=== PATIENT | female | born 1955 | race Caucasian/White ===

== ENCOUNTER 2019-08-22 13:28 | Inpatient (IN) | payer MEDICARE ==
[~2019-08-22] VITALS: Ht 162.6 cm; Wt 66.3 kg
--- OUTSIDE RECORDS SUMMARY | 2019-08-22 13:31 | XMS REPORT ---
[facility] Address Unknown Phone Unavailable Care Team Providers Care Rheostat Assembler Name Role Phone Unavailable Unavailable Problems This patient has no known problems. Allergies, Adverse Reactions, Alerts This patient has no known allergies or adverse reactions. Medications This patient has no known medications. Encounters Start Date/Time End Date/Time Encounter Type Admission Type Attending [facility] Facility Care Department Encounter ID 2017-05-19 07:30:13 Inpatient [facility] [id number] 2017-05-13 14:19:15 Inpatient [facility] [id number] 2017-04-23 00:03:17 Inpatient [facility] [id number] 2017-04-22 07:29:15 Inpatient [facility] [id number] 2017-04-22 00:15:28 Inpatient [facility] [id number] 2017-04-21 00:10:14 Inpatient [facility] [id number] 2017-04-19 00:04:04 Inpatient [facility] [id number] 2017-04-18 00:09:48 Inpatient [facility] [id number] 2017-04-16 00:00:00 Inpatient [facility] [id number] 2017-04-15 16:29:18 Inpatient [facility] [id number] 2017-04-14 00:00:00 Inpatient [facility] [id number] 2018-09-06 00:00:00 2018-09-06 00:00:00 Outpatient [facility] [id number] 2018-08-12 00:00:00 2018-08-12 00:00:00 Outpatient [facility] [id number] 2018-07-12 15:09:13 2018-07-12 15:09:13 Outpatient [facility] [id number] 2018-07-12 13:30:24 2018-07-12 13:30:24 Outpatient [facility] [id number] 2018-06-20 07:47:30 2018-06-20 07:47:30 Outpatient [facility] [id number] 2018-06-07 12:56:59 2018-06-07 12:56:59 Outpatient [facility] [id number] 2018-05-26 15:04:50 2018-05-26 15:04:50 Outpatient [facility] [id number] 2018-05-19 10:33:15 2018-05-19 10:33:15 Outpatient [facility] [id number] 2018-05-19 10:16:11 2018-05-19 10:16:11 Outpatient [facility] [id number] 2018-05-17 08:52:04 2018-05-17 08:52:04 Outpatient [facility] [id number] 2018-05-17 00:00:00 2018-05-17 00:00:00 Outpatient [facility] [id number] 2018-05-16 00:00:00 2018-05-16 00:00:00 Outpatient [facility] [id number] 2018-05-06 08:52:04 2018-05-06 08:52:04 Outpatient [facility] [id number] 2018-05-06 07:54:04 2018-05-06 07:54:04 Outpatient [facility] [id number] 2018-04-27 07:57:01 2018-04-27 07:57:01 Outpatient [facility] [id number] 2018-04-25 08:43:12 2018-04-25 08:43:12 Outpatient [facility] [id number] 2018-03-17 00:00:00 2018-03-17 00:00:00 Outpatient [facility] [id number] 2018-03-15 08:03:44 2018-03-15 08:03:44 Outpatient [facility] [id number] 2018-03-04 10:08:59 2018-03-04 10:08:59 Outpatient [facility] [id number] 2018-03-04 08:11:30 2018-03-04 08:11:30 Outpatient [facility] [id number] 2018-03-04 00:00:00 2018-03-04 00:00:00 Outpatient [facility] [id number] 2018-02-23 14:41:44 2018-02-23 14:41:44 Outpatient [facility] [id number] 2018-02-02 13:15:13 2018-02-02 13:15:13 Outpatient [facility] [id number] 2018-02-02 11:46:19 2018-02-02 11:46:19 Outpatient [facility] [id number] 2018-01-12 00:00:00 2018-01-12 00:00:00 Outpatient [facility] [id number] 2018-01-12 00:00:00 2018-01-12 00:00:00 Outpatient [facility] [id number] 2017-11-30 00:00:00 2017-11-30 00:00:00 Outpatient [facility] [id number] 2017-11-04 13:09:18 2017-11-04 13:09:18 Outpatient [facility] [id number] 2017-11-02 00:00:00 2017-11-02 00:00:00 Outpatient [facility] [id number] 2017-10-11 12:52:14 2017-10-11 12:52:14 Outpatient [facility] [id number] 2017-10-06 10:09:10 2017-10-06 10:09:10 Outpatient [facility] [id number] 2017-10-04 13:29:39 2017-10-04 13:29:39 Outpatient [facility] [id number] 2017-10-01 09:39:34 2017-10-01 09:39:34 Outpatient [facility] [id number] 2017-09-15 13:05:56 2017-09-15 13:05:56 Outpatient [facility] [id number] 2017-09-15 12:00:10 2017-09-15 12:00:10 Outpatient [facility] [id number] 2017-09-13 13:00:54 2017-09-13 13:00:54 Outpatient [facility] [id number] 2017-09-10 00:00:00 2017-09-10 00:00:00 Outpatient [facility] [id number] 2017-09-09 12:35:00 2017-09-09 12:35:00 Outpatient [facility] [id number] 2017-09-09 00:00:00 2017-09-09 00:00:00 Outpatient [facility] [id number] 2017-09-08 10:17:09 2017-09-08 10:17:09 Outpatient [facility] [id number] 2017-09-08 00:00:00 2017-09-08 00:00:00 Outpatient [facility] [id number] 2017-09-07 00:00:00 2017-09-07 00:00:00 Outpatient [facility] [id number] 2017-09-03 12:07:18 2017-09-03 12:07:18 Outpatient [facility] [id number] 2017-08-30 13:29:34 2017-08-30 13:29:34 Outpatient [facility] [id number] 2017-08-30 12:32:43 2017-08-30 12:32:43 Outpatient [facility] [id number] 2017-08-27 08:05:34 2017-08-27 08:05:34 Outpatient [facility] [id number] 2017-08-19 08:42:45 2017-08-19 08:42:45 Outpatient [facility] [id number] 2017-08-03 15:08:38 2017-08-03 15:08:38 Outpatient [facility] [id number] 2017-08-03 13:40:51 2017-08-03 13:40:51 Outpatient [facility] [id number] 2017-07-26 12:43:21 2017-07-26 12:43:21 Outpatient [facility] [id number] 2017-07-26 00:00:00 2017-07-26 00:00:00 Outpatient [facility] [id number] 2017-07-22 00:00:00 2017-07-22 00:00:00 Outpatient [facility] [id number] 2017-07-21 13:14:39 2017-07-21 13:14:39 Outpatient [facility] [id number] 2017-07-21 00:00:00 2017-07-21 00:00:00 Outpatient [facility] [id number] 2017-07-15 09:11:59 2017-07-15 09:11:59 Outpatient [facility] [id number] 2017-07-15 00:00:00 2017-07-15 00:00:00 Outpatient [facility] [id number] 2017-07-12 14:03:26 2017-07-12 14:03:26 Outpatient [facility] [id number] 2017-07-09 09:18:13 2017-07-09 09:18:13 Outpatient [facility] [id number] 2017-07-02 00:00:00 2017-07-02 00:00:00 Outpatient [facility] [id number] 2017-07-01 00:00:00 2017-07-01 00:00:00 Outpatient [facility] [id number] 2017-06-18 09:58:00 2017-06-18 09:58:00 Outpatient [facility] [id number] 2017-06-16 14:54:06 2017-06-16 14:54:06 Outpatient [facility] [id number] 2017-06-16 14:20:11 2017-06-16 14:20:11 Outpatient [facility] [id number] 2017-06-14 13:52:55 2017-06-14 13:52:55 Outpatient [facility] [id number] 2017-06-14 00:00:00 2017-06-14 00:00:00 Outpatient [facility] [id number] 2017-06-07 10:46:02 2017-06-07 10:46:02 Outpatient [facility] [id number] 2017-06-03 00:44:10 2017-06-03 00:44:10 Emergency [facility] [id number] 2017-06-02 23:55:06 2017-06-02 23:55:06 Emergency [facility] [id number] 2017-06-02 14:39:46 2017-06-02 14:39:46 Outpatient [facility] [id number] 2017-06-01 09:03:28 2017-06-01 09:03:28 Outpatient [facility] [id number] 2017-06-01 00:00:00 2017-06-01 00:00:00 Outpatient [facility] [id number] 2017-05-28 15:05:05 2017-05-28 00:00:00 Inpatient [facility] [id number] 2017-05-28 00:00:00 2017-05-28 00:00:00 Outpatient [facility] [id number] 2017-05-27 00:00:00 2017-05-27 00:00:00 Outpatient [facility] [id number] 2017-05-27 00:00:00 2017-05-27 00:00:00 Outpatient [facility] [id number] 2017-05-26 11:20:06 2017-05-26 00:00:00 Inpatient [facility] [id number] 2017-05-26 00:00:00 2017-05-26 00:00:00 Outpatient [facility] [id number] 2017-05-25 15:35:06 2017-05-25 00:00:00 Inpatient [facility] [id number] 2017-05-25 15:13:46 2017-05-25 00:00:00 Inpatient [facility] [id number] 2017-05-25 15:13:45 2017-05-25 00:00:00 Inpatient [facility] [id number] 2017-05-25 12:47:03 2017-05-25 00:00:00 Inpatient [facility] [id number] 2017-05-25 00:00:00 2017-05-25 00:00:00 Outpatient [facility] [id number] 2017-05-24 07:22:26 2017-05-24 07:22:26 Emergency [facility] [id number] 2017-05-24 05:44:20 2017-05-24 05:44:20 Inpatient [facility] [id number] 2017-05-24 00:00:00 2017-05-24 00:00:00 Outpatient [facility] [id number] 2017-05-24 00:00:00 2017-05-24 00:00:00 Outpatient [facility] [id number] 2017-05-24 00:00:00 2017-05-24 00:00:00 Outpatient [facility] [id number] 2017-05-24 00:00:00 2017-05-24 00:00:00 Outpatient [facility] [id number] 2017-05-19 00:00:00 2017-05-19 00:00:00 Outpatient [facility] [id number] 2017-05-19 00:00:00 2017-05-19 00:00:00 Outpatient [facility] [id number] 2017-05-19 00:00:00 2017-05-19 00:00:00 Outpatient [facility] [id number] 2017-05-17 17:57:30 2017-05-17 17:57:30 Inpatient [facility] [id number] 2017-05-14 00:00:00 2017-05-14 00:00:00 Outpatient [facility] [id number] 2017-05-13 12:20:35 2017-05-13 00:00:00 Inpatient [facility] [id number] 2017-05-12 13:22:44 2017-05-12 13:22:44 Outpatient [facility] [id number] 2017-05-12 10:10:34 2017-05-12 10:10:34 Outpatient [facility] [id number] 2017-05-12 09:11:13 2017-05-12 09:11:13 Outpatient [facility] [id number] 2017-05-12 17:40:00 2017-05-12 00:00:00 Inpatient [facility] [id number] 2017-05-12 00:00:00 2017-05-12 00:00:00 Outpatient [facility] [id number] 2017-05-12 00:00:00 2017-05-12 00:00:00 Outpatient [facility] [id number] 2017-04-21 15:47:34 2017-04-21 00:00:00 Inpatient [facility] [id number] 2017-04-20 00:14:10 2017-04-20 00:00:00 Inpatient [facility] [id number] 2017-04-19 16:38:48 2017-04-19 00:00:00 Inpatient [facility] [id number] 2017-04-17 00:33:53 2017-04-17 00:00:00 Inpatient [facility] [id number] 2017-04-16 13:00:48 2017-04-16 00:00:00 Inpatient [facility] [id number] 2017-04-15 17:31:22 2017-04-15 00:00:00 Inpatient [facility] [id number] 2017-04-08 08:31:25 2017-04-08 08:31:25 Outpatient [facility] [id number] 2017-04-08 07:40:27 2017-04-08 07:40:27 Outpatient [facility] [id number] 2017-03-31 09:06:39 2017-03-31 09:06:39 Outpatient [facility] [id number] 2017-03-10 09:27:12 2017-03-10 09:27:12 Outpatient [facility] [id number] 2017-03-08 09:30:57 2017-03-08 09:30:57 Outpatient [facility] [id number] 2017-03-04 00:00:00 2017-03-04 00:00:00 Outpatient [facility] [id number]
--- OUTSIDE RECORDS SUMMARY | 2019-08-22 13:31 | XMS REPORT | Summary of Care ---
Author Author Justine Montague M.A. Unknown Address [facility] Phone Unavailable Care Team Providers Care Web Application Developer Name Role Phone FABIEN Krishnan, ERMA Unavailable Unavailable SIVAKUMAR Whyte, BARBARA Unavailable Unavailable MELIA Krishnan, SRIDHAR Unavailable Unavailable ELISABETH SULLIVAN, GABE Sin Unavailable Unavailable ELISABETH Whyte, GABE Unavailable Unavailable FABIEN SAUCEDO, ERMA Unavailable Unavailable SIVAKUMAR SULLIVAN, BARBARA Unavailable Unavailable MANUEL SULLIVAN, DANIS Unavailable Unavailable Gabby SULLIVAN, Floyd Unavailable Unavailable ALEX SULLIVAN DE, SEAN PONCE Unavailable Unavailable VIKKI SULLIVAN, VINCENT Poe Unavailable Unavailable Unavailable Unavailable Functional Status Name Dates Details Functional status health issues are not documented Status: Name Dates Details Cognitive status health issues are not documented Status: Problems Name Dates Details Hyperglycemia (790.29, R73.9) Status: Active Hypokalemia (276.8, E87.6) Status: Active Financial difficulties (V60.2, Z59.8) Status: Active Helicobacter pylori (H. pylori) infection (041.86, A04.8) Status: Active Fecal occult blood test positive (792.1, R19.5) Status: Active Entrapment syndrome (355.9, G58.9) Status: Active Nerve entrapment syndrome (355.9, G58.9) Status: Active History of claustrophobia (V11.8, Z86.59) Status: Active Rectal bleeding (569.3, K62.5) Status: Active Myofascial pain (729.1, M79.18) Status: Active Rectal bleeding (569.3, K62.5) Status: Active Diarrhea (787.91, R19.7) Status: Active Acid reflux (530.81, K21.9) Status: Active Chest pain (786.50, R07.9) Status: Active LBBB (left bundle branch block) (426.3, I44.7) Status: Active Influenza vaccine administered (V04.81, Z23) Status: Active Acute bronchitis, viral (466.0, J20.8) Status: Active Elevated LFTs (790.6, R94.5) Status: Active Breast cancer screening (V76.10, Z12.39) Status: Active Influenza A (487.1, J10.1) Status: Active Acute bacterial bronchitis (466.0, J20.8) Status: Active Flu-like symptoms (780.99, R68.89) Status: Active Atypical chest pain (786.59, R07.89) Status: Active Vertigo, peripheral (386.10, H81.399) Status: Active Allergic rhinitis, seasonal (477.9, J30.2) Status: Active Aortic valve replaced (V43.3, Z95.2) Status: Active Acid reflux disease (530.81, K21.9) Status: Active Hypothyroidism (244.9, E03.9) Status: Active Continuous LUQ abdominal pain (789.02, R10.12) Status: Active Left flank pain (789.09, R10.9) Status: Active Fever and chills (780.60, R50.9) Status: Active Controlled diabetes mellitus (250.00, E11.9) Status: Active UTI (urinary tract infection) (599.0, N39.0) Status: Active Hyperkalemia (276.7, E87.5) Status: Active On statin therapy (V58.69, Z79.899) Status: Active Abdominal pain (789.00, R10.9) Status: Active Diabetes mellitus type II, uncontrolled (250.02, E11.65) Status: Active Essential (primary) hypertension (401.9, I10) Status: Active Hyperlipidemia (272.4, E78.5) Status: Active Abdominal pain, acute, left upper quadrant (789.02, R10.12) Status: Active PAOD (peripheral arterial occlusive disease) (444.22, I77.9) Status: Active Medications Name Dates Details Atorvastatin Calcium 40 MG Oral Tablet TAKE 1 TABLET DAILY DIRECTED. Quantity: 90 BARBARA SHAVER M.D. * Start : 28-Mar-2019 Active Clopidogrel Bisulfate 75 MG Oral Tablet TAKE 1 TABLET DAILY. * Quantity: 90 Refills: 3 BARBARA SHAVER M.D. Active Fenofibrate 145 MG Oral Tablet TAKE 1 TABLET DAILY * Quantity: 90 Refills: 3 BARBARA SHAVER M.D. * Start : 08-Mar-2019 Active Levothyroxine Sodium 75 MCG Oral Tablet TAKE 1 TABLET DAILY. * Quantity: 90 Refills: 1 FABIEN Strong.ERMA Tyler * Start : 27-Jun-2019 Active Nitroglycerin 0.4 MG Sublingual Tablet Sublingual PLACE 1 TABLET UNDER THE TONGUE EVERY 5 MINUTES FOR UP TO 3 DOSES NEEDED FOR CHEST PAIN.CALL 911 IF PAIN PERSISTS. * Quantity: 1 Refills: 0 BARBARA SHAVER M.D. Active 25 Tablet Bottle Pantoprazole Sodium 40 MG Oral Tablet Delayed Release TAKE 1 TABLET DAILY * Quantity: 90 Refills: 3 BARBARA SHAVER M.D. Active metFORMIN HCl - 500 MG Oral Tablet TAKE 1 TABLET BY MOUTH EVERY MORNING * Quantity: 90 Refills: 1 FABIEN Strong.ERMA Tyler * Start : 07-Jan-2018 Active hydroCHLOROthiazide 25 MG Oral Tablet TAKE ONE TABLET BY MOUTH DAILY * Quantity: 90 Refills: Janice BARBARA SHAVER M.D. * Start : 17-Jan-2018 Active Losartan Potassium 50 MG Oral Tablet TAKE 1 TABLET DAILY. * Quantity: 90 Refills: 3 BARBARA SHAVER M.D. Active True Metrix Meter w/Device Kit USE DIRECTED DX:E11.9. * Quantity: 1 Refills: 0 FABIEN P.AMELANY BensonERMA * Start : 22-Dec-2018 Active True Metrix Blood Glucose Test In Vitro Strip TEST ONCE DAILY DIRECTED dx:E11.9 * Quantity: 100 Refills: 0 FABIEN P.A. ERMA * Start : 22-Dec-2018 Active Meclizine HCl - 12.5 MG Oral Tablet TAKE 1 TABLET 3 TIMES DAILY NEEDED FOR DIZZINESS * Quantity: 30 Refills: 0 SRIDHAR MARTINEZ * Start : 28-Feb-2019 Active Levocetirizine Dihydrochloride 5 MG Oral Tablet TAKE 1 TABLET DAILY. * Quantity: 90 Refills: 1 FABIEN Strong.A.MELANYERMA * Start : 10-Apr-2019 Active Sulfamethoxazole-Trimethoprim 800-160 MG Oral Tablet TAKE 1 TABLET TWICE DAILY UNTIL FINISHED. * Quantity: 20 Refills: 0 FABIEN P.A., ERMA * Start : 25-May-2019 Active Allergies and Adverse Reactions Name Dates Details Aspirin TABS (Allergy) Status: Active codeine (Allergy) Status: Active Heparins (Allergy) Status: Active Lovenox (Allergy) Status: Active Lyrica CAPS (Allergy) Reaction: Abdominal pain Status: Active morphine (Allergy) Status: Active Paxil TABS (Allergy) Status: Active Penicillins (Allergy) Status: Active Tdap (Allergy) Status: Active Tetanus-Diphtheria Toxoids Td SUSP (Allergy) Status: Active Tetracyclines (Allergy) Status: Active warfarin (Allergy) Status: Active Zoloft TABS (Allergy) Status: Active Past Medical History Name Dates Details History of depression (V11.8, Z86.59) Status: Resolved 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, Z86.2) Status: Resolved History of high cholesterol (V12.29, Z86.39) Status: Resolved History of hypertension (V12.59, Z86.79) Status: Resolved History of hyperthyroidism (V12.29, Z86.39) Status: Resolved Procedures Procedure Dates Details [QH] LIPID PANEL WITH REFLEX TO DIRECT LDL Date: 22-Jun-2019 [QLH] HEPATIC FUNCTION PANEL Date: 22-Jun-2019 CT Abdomen/Pelvis w/wo contrast [id number] Date: 25-May-2019 History of Gallbladder surgery Completed History of Hysterectomy Completed History of Aortic valve replacement Completed History of Leg surgery Completed Immunization Name Dates Details Fluzone High-Dose 0.5 ML Intramuscular Suspension Prefilled Syringe Lot #: [id number] on: 27-Dec-2018 Family History Name Dates Details Family history of Aortic valve replaced (V43.3, Z95.2) Status: Active Name Dates Details Family history of diabetes mellitus (V18.0, Z83.3) Status: Active Name Dates Details Family history of diabetes mellitus (V18.0, Z83.3) Status: Active Name Dates Details Family history of diabetes mellitus (V18.0, Z83.3) Status: Active Social History Name Dates Details - Status: Name Dates Details Smoker. current status unknown Vital Signs Date Test Result Details [id number] BP Systolic 125 mm[Hg] Status: Comments: Location: E; Position: Sitting BP Diastolic 76 mm[Hg] Status: Comments: [place] [facility] [place] Height 64 in Status: Weight 138.25 lb Status: Body Mass Index Calculated 23.73 kg/m2 Status: Body Surface Area Calculated 1.67 m2 Status: Heart Rate 81 /min Status: Respiration Rate 16 /min Status: Results Date Description Value Details [id number] [FORM[facility]LY [facility]] CMP W/EGFR Comments: REPORT COMMENT:FASTING:NO GLUCOSE 107 mg/dl (Normal) Range: 65-139 Comments: Non-fasting reference interval UREA NITROGEN (BUN) 21 mg/dl (Normal) Range: 7-25 CREATININE 0.78 mg/dl (Normal) Range: 0.50-0.99 Comments: For patients >49 years of age, the reference limitfor Creatinine is approximately 13% higher for peopleidentified as -[place]. eGFR NON- 80 {ML/MIN/1.7} (Normal) Range: > OR=60 eGFR 92 {ML/MIN/1.7} (Normal) Range: > OR=60 BUN/CREATININE RATIO NOT APPLICABLE {CALC} Range: 6-22 SODIUM 136 mmol/L (Normal) Range: 135-146 POTASSIUM 3.9 mmol/L (Normal) Range: 3.5-5.3 CHLORIDE 100 mmol/L (Normal) Range: 98-110 CARBON DIOXIDE 29 mmol/L (Normal) Range: 20-32 CALCIUM 9.7 mg/dl (Normal) Range: 8.6-10.4 PROTEIN, TOTAL 7.2 g/dl (Normal) Range: 6.1-8.1 ALBUMIN 4.4 g/dl (Normal) Range: 3.6-5.1 GLOBULIN 2.8 {G/DL__CALC} (Normal) Range: 1.9-3.7 ALBUMIN/GLOBULIN RATIO 1.6 {CALC} (Normal) Range: 1.0-2.5 BILIRUBIN, TOTAL 0.5 mg/dl (Normal) Range: 0.2-1.2 ALKALINE PHSPHATASE 77 u/l (Normal) Range: 33-130 AST 19 u/l (Normal) Range: 10-35 ALT 15 u/l (Normal) Range: 6-29 Plan of Care Name Dates Details Planned Observations Planned Goals not documented Planned Encounters Appointment; ERMA CONN P.A. On: 10-Oct-2019 8:00 Appointment; BARBARA SHAVER M.D. On: 26-Oct-2019 10:00 Interventions Provided Medication Changes* Levocetirizine Dihydrochloride 5 MG Oral Tablet - Renew Instructions Name Dates Details Instructions not documented Encounters Appointment; ERMA CONN P.A. Encounter Diagnosis: Problem not documented On: 23-Dec-2017 9:45 Appointment; BARBARA SHAVER M.D. Encounter Diagnosis: Problem not documented On: 06-Jan-2018 14:20 Appointment; ERMA CONN P.A. Encounter Diagnosis: Problem not documented On: 07-Jan-2018 9:15 Appointment; FLOYD RANGEL M.D. Encounter Diagnosis: Problem not documented On: 10-Jan-2018 15:00 Appointment; [place], ECHO Encounter Diagnosis: Problem not documented On: 14-Jan-2018 13:00 Appointment; [place], ECHO Encounter Diagnosis: Problem not documented On: 14-Jan-2018 14:00 Appointment; [place], ECHO Encounter Diagnosis: Problem not documented On: 14-Jan-2018 15:00 Appointment; BARBARA SHAVER M.D. Encounter Diagnosis: Problem not documented On: 17-Jan-2018 10:20 Appointment; DANIS JACKSON M.D. Encounter Diagnosis: Problem not documented On: 19-Jan-2018 8:45 Appointment; ILIR PALOMINO D.O. Encounter Diagnosis: Problem not documented On: 19-Jul-2018 11:00 Appointment; FLOYD RANGEL M.D. Encounter Diagnosis: Problem not documented On: 26-Jul-2018 16:30 Appointment; FLOYD RANGEL M.D. Encounter Diagnosis: Problem not documented On: 05-Aug-2018 15:00 Appointment; DANIS JACKSON M.D. Encounter Diagnosis: Problem not documented On: 29-Aug-2018 8:00 Appointment; FLOYD RANGEL M.D. Encounter Diagnosis: Problem not documented On: 01-Sep-2018 15:30 Appointment; [facility] CON[facility] P.A. Encounter Diagnosis: Problem not documented On: 07-Sep-2018 9:45 Appointment; FLOYD RANGEL M.D. Encounter Diagnosis: Problem not documented On: 18-Oct-2018 13:00 Appointment; FLOYD RANGEL M.D. Encounter Diagnosis: Problem not documented On: 21-Nov-2018 9:30 Appointment; BABRARA SHAVER M.D. Encounter Diagnosis: Problem not documented On: 08-Dec-2018 11:40 Appointment; [facility], NUCLEAR Encounter Diagnosis: Problem not documented On: 27-Dec-2018 8:00 Appointment; BARBARA SHAVER M.D. Encounter Diagnosis: Problem not documented On: 27-Dec-2018 13:20 Appointment; [facility] CON[facility] P.A. Encounter Diagnosis: Problem not documented On: 05-Jan-2019 9:30 Appointment; [facility] CON[facility] P.A. Encounter Diagnosis: Problem not documented On: 23-Jan-2019 9:00 Appointment; SRIDHAR CÁRDENAS P.A. Encounter Diagnosis: Problem not documented On: 28-Feb-2019 15:45 Appointment; [facility] CONN P.A. Encounter Diagnosis: Problem not documented On: 10-Apr-2019 8:00 Appointment; BARBARA SHAVER M.D. Encounter Diagnosis: Problem not documented On: 11-May-2019 15:20 Appointment; [facility] CONN P.A. Encounter Diagnosis: Problem not documented On: 25-May-2019 10:15 Appointment; [place], ECHO Encounter Diagnosis: Problem not documented On: 19-Jun-2019 9:00 Appointment; BARBARA SHAVER M.D. Encounter Diagnosis: Problem not documented On: 22-Jun-2019 10:40 Appointment; OPHELIA NEVAREZ M.D. Encounter Diagnosis: Problem not documented On: 23-Jun-2019 9:30
[2019-08-22 14:07] LABS: BILIRUBIN,URINE NEGATIVE (NEGATIVE); CLARITY,URINE CLEAR (CLEAR); COLOR,URINE YELLOW (YELLOW); KETONES,URINE NEGATIVE (NEGATIVE); LEUKOCYTE ESTERASE ,URINE SMALL (NEGATIVE); NITRITE,URINE NEGATIVE (NEGATIVE); PROTEIN,URINE DIPSTICK NEGATIVE (NEGATIVE); URINE UROBILINOGEN 0.2 mg/dL (0.2 - 1)
[2019-08-22 14:12] LABS: BASOPHILS # (AUTO) 0.1 (0.0-0.1); BASOPHILS % 0.9 % (0.0-1.0); EOSINOPHILS # (AUTO) 0.1 (0.0-0.4); EOSINOPHILS % 1.7 % (0.0-6.0); HEMATOCRIT 38.5 % (34.2-44.1); HEMOGLOBIN 12.9 g/dL (12.0-16.0); LYMPHOCYTES # (AUTO) 1.2 (1.0-3.2); MEAN CORPUSCULAR HEMOGLOBIN 27.7 pg (28-32); MEAN CORPUSCULAR HGB CONC 33.5 g/dL (31-35); MEAN CORPUSCULAR VOLUME 82.8 fL (81-99); MONOCYTES # (AUTO) 0.5 (0.2-0.8); MONOCYTES % 8.9 % (4.4-11.3); NEUTROPHILS # (AUTO) 3.5 (2.1-6.9); NEUTROPHILS % 65.9 % (38.7-80.0); PLATELET COUNT 269 x10e3/uL (140-360); RED BLOOD COUNT 4.65 x10e6/uL (3.6-5.1); RED CELL DISTRIBUTION WIDTH 14.6 % (11.7-14.4)
[2019-08-22] MEDS ORDERED: ONDANSETRON HCL INJ 2MG/ML 2ML 2 MG/ML VIAL IV STA (14:14)
[2019-08-22] MEDS ORDERED: MORPHINE SULFATE 2 MG/ML SYR 1ML IV STA (14:14)
[2019-08-22] MEDS ORDERED: SODIUM CHLORIDE 0.9% 1000ML 1,000 ML IV ONE (14:15)
[2019-08-22 14:16] LABS: PROTHROMBIN TIME 13.7 seconds (11.9-14.5)
[2019-08-22 14:17] LABS: PARTIAL THROMBOPLASTIN TIME 31.5 seconds (23.8-35.5)
[2019-08-22 14:22] LABS: BACTERIA,URINE RARE /HPF; EPITHELIAL CELLS,URINE RARE /LPF; WBC,URINE (MAN) 0-5 /HPF (0-5)
[2019-08-22 14:23] LABS: ALANINE AMINOTRANSFERASE 21 IU/L (0-55); ALBUMIN/GLOBULIN RATIO 1.1 (0.8-2.0); ALKALINE PHOSPHATASE 76 IU/L (40-150); ANION GAP 17.7 mmol/L (8-16); BLOOD UREA NITROGEN 14 mg/dL (7-26); BUN/CREATININE RATIO 17 (6-25); CALCIUM 10.2 mg/dL (8.4-10.2); CARBON DIOXIDE 21 mmol/L (22-29); CHLORIDE 100 mmol/L (98-107); CREATINE KINASE 52 IU/L (29-168); CREATININE, SERUM 0.84 mg/dL (0.57-1.11); EST GLOMERULAR FILTRATION RATE > 60 ML/MIN (60-); GLUCOSE 127 mg/dL (74-118); POTASSIUM 3.7 mmol/L (3.5-5.1); SODIUM 135 mmol/L (136-145)
[2019-08-22] MEDS ORDERED: ACETAMINOPHEN 325 MG TAB PO ONE (14:30)
--- NOTE | 2019-08-22 15:40 | Diagnostic Imaging Report ---
EXAMINATION: CHEST SINGLE (PORTABLE) INDICATION: Chest pain COMPARISON: None FINDINGS: LINES/TUBES:None LUNGS:The lungs are well-inflated. No focal consolidation or pulmonary edema. Left apical subcentimeter calcified granuloma. PLEURA:No pleural effusion or pneumothorax. MEDIASTINUM:The cardiomediastinal silhouette appears normal in size and shape. Atherosclerotic calcifications of the thoracic aorta. BONES/SOFT TISSUES:No acute osseous injury. Sternotomy wires intact. ABDOMEN:No free air under the diaphragm. IMPRESSION: No focal pneumonia or pulmonary edema. Signed by: Elliot Ayala MD on 08/22/2019 3:36 PM
[2019-08-22] MEDS ORDERED: ONDANSETRON HCL INJ 2MG/ML 2ML 2 MG/ML VIAL IV PRN (15:45)
[2019-08-22] MEDS ORDERED: ASPIRIN 81 MG CHEW TAB PO ONE (16:00)
[2019-08-22] MEDS ORDERED: HYDROMORPHONE 1MG/1ML INJ IV PRN (16:45)
[2019-08-22 18:04] VITALS: BP 160/82
--- NOTE | 2019-08-22 19:15 | NUR ---
Received report from previous nurse. Call light within reach. Patient in bed.
[2019-08-22 20:00] VITALS: BP 153/78
--- NOTE | 2019-08-22 20:00 | NUR ---
Called and talked to Dr. Cortez about patient wanting pain medication. Dr. Cortez asked about her home medication and said to discontinue the Dilaudid and give Tylenol 650 mg q6. He said to resume all home meds except metformin which he put an order for low dose sliding scale.
[2019-08-22] MEDS ORDERED: DEXTROSE 50% SYRINGE 50 ML IV PRN (20:15)
[2019-08-22] MEDS ORDERED: ACETAMINOPHEN 325 MG TAB PO PRN (20:15)
[2019-08-22] MEDS ORDERED: LEVOTHYROXINE75 MCG PO (20:23)
[2019-08-22] MEDS ORDERED: LOSARTAN POTASS25 MG PO (20:23)
[2019-08-22] MEDS ORDERED: FENOFIBRATE145 MG PO (20:23)
[2019-08-22] MEDS ORDERED: HYDROCHLOROTHIA25 MG (20:23)
[2019-08-22] MEDS ORDERED: PANTOPRAZOLE SO40 MG PO (20:23)
[2019-08-22] MEDS ORDERED: METFORMIN HCL500 MG PO (20:23)
[2019-08-22] MEDS ORDERED: ATORVASTATIN CA20 MG PO (20:23)
[2019-08-22] MEDS ORDERED: LEVOCETIRIZINE D5 MG PO (20:23)
[2019-08-22] MEDS ORDERED: CLOPIDOGREL75 MG PO (20:23)
[2019-08-22 20:30] VITALS: BP 153/78
[2019-08-22 20:44] VITALS: BP 153/78
[2019-08-22] MEDS: ATORVASTATIN 20 MG TAB PO SCH ×2 (21:00→21:14)
[2019-08-22] MEDS: INSULIN REGULAR, HUMAN 100 UNIT/1 ML 3ML VIAL SQ SCH ×2 (21:00→21:14)
--- NOTE | 2019-08-22 22:00 | NUR ---
PATIENT REFUSED ALL NIGHT MEDICATION AND SAID SHE TOOK HER OWN MEDICATION
[2019-08-22] MEDS: SODIUM CHLORIDE 0.9% 1000ML 1,000 ML IV SCH (23:31)
[2019-08-23] VITALS (8 sets, daily range): BP systolic 121–155; BP diastolic 61–90
[2019-08-23 00:15] LABS: CREATINE KINASE MB 7.7 ng/mL (0-5.0)
[2019-08-23] MEDS: SODIUM CHLORIDE 0.9% 1000ML 1,000 ML IV SCH ×3 (02:16→19:29)
[2019-08-23 05:21] LABS: BASOPHILS % 0.8 % (0.0-1.0); EOSINOPHILS # (AUTO) 0.1 (0.0-0.4); EOSINOPHILS % 2.7 % (0.0-6.0); HEMATOCRIT 38.1 % (34.2-44.1); HEMOGLOBIN 12.4 g/dL (12.0-16.0); LYMPHOCYTES # (AUTO) 1.3 (1.0-3.2); LYMPHOCYTES % 24.4 % (18.0-39.1); MEAN CORPUSCULAR HEMOGLOBIN 27.6 pg (28-32); MEAN CORPUSCULAR HGB CONC 32.5 g/dL (31-35); MEAN CORPUSCULAR VOLUME 84.9 fL (81-99); MONOCYTES # (AUTO) 0.5 (0.2-0.8); MONOCYTES % 10.3 % (4.4-11.3); NEUTROPHILS # (AUTO) 3.2 (2.1-6.9); NEUTROPHILS % 61.4 % (38.7-80.0); PLATELET COUNT 246 x10e3/uL (140-360); RED BLOOD COUNT 4.49 x10e6/uL (3.6-5.1); RED CELL DISTRIBUTION WIDTH 14.6 % (11.7-14.4)
[2019-08-23 05:32] LABS: INR 1.01; PROTHROMBIN TIME 13.8 seconds (11.9-14.5)
[2019-08-23 05:33] LABS: PARTIAL THROMBOPLASTIN TIME 32.4 seconds (23.8-35.5)
[2019-08-23 05:42] LABS: ANION GAP 16.8 mmol/L (8-16); BLOOD UREA NITROGEN 14 mg/dL (7-26); BUN/CREATININE RATIO 23 (6-25); CALCIUM 10.3 mg/dL (8.4-10.2); CARBON DIOXIDE 22 mmol/L (22-29); CHLORIDE 101 mmol/L (98-107); CREATININE, SERUM 0.61 mg/dL (0.57-1.11); EST GLOMERULAR FILTRATION RATE > 60 ML/MIN (60-); GLUCOSE 116 mg/dL (74-118); POTASSIUM 3.8 mmol/L (3.5-5.1); SODIUM 136 mmol/L (136-145)
[2019-08-23 06:07] LABS: CREATINE KINASE MB 15.3 ng/mL (0-5.0)
[2019-08-23] MEDS: LEVOTHYROXINE SODIUM 75 MCG TAB PO SCH (06:18)
--- NOTE | 2019-08-23 06:24 | NUR ---
Called and talked to Dr. Brandon about patient's troponin of 1.527. Dr. Brandon said he will come in and treat it.
--- NOTE | 2019-08-23 06:24 | NUR ---
Called and talked to Dr. Cortez about patient's troponin of 1.527. Dr. Cortez said to call the drilling machine operator.
[2019-08-23] MEDS: INSULIN REGULAR, HUMAN 100 UNIT/1 ML 3ML VIAL SQ SCH ×4 (07:30→20:19)
--- NOTE | 2019-08-23 07:51 | NUR ---
Gave report to oncoming nurse. Call light within reach. Patient in bed.
--- NOTE | 2019-08-23 08:22 | Diagnostic Imaging Report ---
Chest, 1 view, 08/23/2019. History: Chest pain. Comparison: None available. Findings: The cardiomediastinal silhouette and pulmonary vasculature are within normal limits for a portable exam. A calcified granuloma is present in the left apex. There is no focal consolidation or pleural effusion. Median sternotomy wires are present. There are no acute osseous or soft tissue abnormalities. Impression: No acute cardiopulmonary abnormality. Signed by: Saurabh Licona on 08/23/2019 8:19 AM
--- NOTE | 2019-08-23 08:25 | NUR ---
spoke to Dr. Brandon regarding elevated troponin, states "dr stevenson will be covering and see patient today', no new orders, will continue to monitor
[2019-08-23] MEDS: LORATADINE 10 MG TAB PO SCH (08:34)
[2019-08-23] MEDS: LOSARTAN POTASSIUM 100 MG TAB PO SCH (08:34)
[2019-08-23] MEDS: HYDROCHLOROTHIAZIDE 25 MG TAB PO SCH (08:34)
[2019-08-23] MEDS: PANTOPRAZOLE SOD 40 MG TABEC PO SCH (08:35)
[2019-08-23] MEDS: FENOFIBRATE 145 MG TAB PO SCH (08:42)
[2019-08-23] MEDS ORDERED: ASPIRIN 325 MG TAB EC PO SCH (09:00)
[2019-08-23] MEDS: CLOPIDOGREL BISULFATE 75 MG TAB PO SCH (09:12)
[2019-08-23] MEDS ORDERED: NITROGLYCERIN 0.4 MG SUBL SL PRN (09:30)
[2019-08-23] MEDS ORDERED: DEXTROSE 50% SYRINGE 50 ML IV PRN (09:45)
[2019-08-23] MEDS ORDERED: FENOFIBRATE 145 MG TAB PO SCH (10:00)
[2019-08-23] MEDS: ONDANSETRON HCL INJ 2MG/ML 2ML 2 MG/ML VIAL IV PRN ×2 (11:10→18:27)
--- NOTE | 2019-08-23 13:45 | History and Physical ---
CHIEF COMPLAINT: Chest pain. HISTORY OF PRESENT ILLNESS: This is a 63-year-old female, very noncompliant with her medical care, also very poor historian, reports to the ED with complaints of substernal chest pain that began yesterday. The patient reports that she was at rest, suddenly noticed having substernal chest pain that radiates to her left shoulder and arm. She does follow up with a pattern attendant, [facility] in [facility] in [place]. She denies a history of any cardiac stents in the past. She reports to me she cannot recall she ever had a heart catheterization. Of note, she reports having a stress test back in May of this year, but she does remember if it was normal or not. She does have an appointment to see her pattern attendant in October of this year. She did report to me that it seems that her pattern attendant was thinking of a heart catheterization in the near future. The patient also reports having a heart valve placed, but she reports that it is not mechanical. She cannot recall which valve was replaced. The patient was a chronic smoker for number of years and she reportedly quit smoking many years ago. During my evaluation, the patient does not have any chest pain at this time. The patient is seen and evaluated at bedside on the medical floor. She is currently doing well with no other issues. The patient reports that she is allergic to aspirin, heparin, and Lovenox. At this time, I have discussed this with Cardiology that the patient may need to be on Angiomax as her troponin is currently 1.5. The patient reports that the chest pain feels more with squeezing sensation when this occurred yesterday. REVIEW OF SYSTEMS: Pertinent positives: Chest pain. Pertinent negatives: Denies any palpitation, nausea, vomiting, diarrhea, dysuria, hematuria, frequency, urgency, lightheadedness, dizziness, abdominal pain, headaches, shortness of breath, cough, congestion, fever, or any other complaints. The rest of 14-point review of systems have been reviewed with the patient and are negative. ALLERGIES: LOVENOX, HEPARIN, ASPIRIN, PENICILLINS, CODEINE, FLUOXETINE, LISINOPRIL, MORPHINE, SERTRALINE, AND TETRACYCLINES. HOME MEDICATIONS: Still pending. See med reconciliation form once available. PAST MEDICAL HISTORY: History of valve unknown which valve replaced, history of chest pain in the past, smoker, noncompliance. PAST SURGICAL HISTORY: She states she had tonsillectomy, hysterectomy, and cholecystectomy. FAMILY HISTORY: Hypertension and diabetes. SOCIAL HISTORY: She was a former smoker. Does not smoke anymore. Social drinker. No drugs. PHYSICAL EXAMINATION: VITAL SIGNS: Temperature is 96.7, pulse is 60, respiratory rate is 20, blood pressure 130/73, pulse ox 98% on room air. GENERAL: Not in acute distress. Alert and oriented x3. Cooperative on examination. HEENT: Head; normocephalic, atraumatic. Eyes; pupils are equal, round, and reactive to light bilaterally. Extraocular movements intact bilaterally. Throat; no evidence of erythema or exudates in the posterior pharynx. Has poor dentition. NECK: Supple. Good range of motion. PULMONARY: Clear to auscultation bilaterally. No wheezing, no rales, no rhonchi, no crackles appreciated. CARDIOVASCULAR: Positive S1 and S2. No murmurs, rubs, or gallops appreciated. ABDOMEN: Soft, nondistended, and nontender to palpation. Bowel sounds present. MUSCULOSKELETAL: Strength is 5/5 throughout. No evidence of any muscle deficits on examination. No weakness appreciated. NEUROLOGIC: Cranial nerve II through XII grossly intact. No evidence of any neurological deficits on exam. SKIN: Intact. Warm to touch. Good cap refill. PSYCHIATRIC: Normal affect and mood. EXTREMITIES: No edema. Good range of motion throughout. LABORATORY FINDINGS: Show white count 5.1, hemoglobin 12.4, hematocrit is 38, and platelets of 246. Coagulation normal. Chemistry reviewed. Sodium 136, potassium 3.8, chloride 101, bicarb 22, anion gap of 16, BUN 14, creatinine 0.61, glucose 116, calcium is 10.3. Troponin up trended, the last one was 1.5. CK-MB is 15.32. BNP 204. Albumin is 4. Urinalysis negative. IMAGING STUDIES: Chest x-ray, no focal pneumonia. Pulmonary edema. Repeat chest x-ray this morning, no acute cardiopulmonary abnormalities. IMPRESSION: 1. Chest pain, rule out acute coronary syndrome/Uxj-TT-fgsgydisa myocardial infarction. 2. Chronic smoker in the past. 3. Hyperlipidemia. 4. Hypothyroidism. 5. Hypertension. 6. Type 2 diabetes. PLAN: At this time, the patient reportedly is allergic to heparin and Lovenox. I spoke with Cardiology, who was on-call, who reports that the patient will likely need to be started on Angiomax. I spoke with pharmacy. They are in the process of speaking to Cardiology and starting this patient on Angiomax shortly. She is allergic to aspirin. We will continue with Plavix. Continue with statins as well. Make her n.p.o. in the event the patient needs a heart catheterization. We are going to resume same antihypertensive medications. Put her on p.r.n. hydralazine. Put her on insulin sliding scale. Get a lipid panel, A1c. Encourage ambulation. I will put SCDs for DVT prophylaxis. At this time, I discussed the plan of care with the nurse, the pattern attendant, and the patient. The patient will likely need further cardiac intervention to determine the etiology of her chest pain. She may benefit from a left heart catheterization, but I will defer that to Cardiology. I did make her n.p.o. in the event she needs any kind of procedures later today. MD MADHURI Davis/CHARAN /[id number]
[2019-08-23] MEDS ORDERED: HYDROCODONE/APAP 5MG-325MG TAB PO PRN (18:45)
[2019-08-23] MEDS: HYDROMORPHONE 1MG/1ML INJ IV PRN ×2 (19:47→23:41)
[2019-08-23] MEDS: ATORVASTATIN 20 MG TAB PO SCH (20:17)
[2019-08-23] MEDS ORDERED: [UNRECOGNIZED DRUG - OTHER] IV SCH (20:45)
[2019-08-23] MEDS ORDERED: SODIUM CHLORIDE 0.9% IV SCH (20:45)
[2019-08-23] MEDS: SODIUM CHLORIDE 0.9% IV SCH (21:04)
[2019-08-23] MEDS: [UNRECOGNIZED DRUG - OTHER] IV SCH (21:04)
--- NOTE | 2019-08-23 23:48 | Consultation ---
DATE OF CONSULTATION: Cardiology Consultation REASON FOR CONSULTATION: Chest pain. HISTORY OF PRESENT ILLNESS: This is a 63-year-old woman with history of bioprosthetic aortic valve replacement, heparin-induced thrombocytopenia, hypertension, hyperlipidemia, coronary artery disease, who presented to the emergency department with chest pain. The patient reports central and left-sided chest pressure, occasionally worse with exertion, associated with shortness of breath, iwla-le-dcfhjxtf in intensity, some radiation into the left arm. The patient follows with the VT carbide operator. The patient was found to have elevated troponins and CK-MB, which prompted our consultation. REVIEW OF SYSTEMS: A 12-point review of system was conducted, is negative except as stated above in the HPI. PAST MEDICAL HISTORY: As stated above in the HPI. PAST SURGICAL HISTORY: Aortic valve replacement. PAST FAMILY HISTORY: No premature coronary artery disease or sudden cardiac . SOCIAL HISTORY: No illicit drug, alcohol, or tobacco use. ALLERGIES: NO KNOWN DRUG ALLERGIES. MEDICATIONS: See medication reconciliation form. PHYSICAL EXAMINATION: VITAL SIGNS: Temperature is 96.6, heart rate is 66, respirations are 18, blood pressure is 136/73, ox saturation 96% on room air. GENERAL: She is well appearing, well built, no apparent distress. Alert and oriented x3. HEAD: Normocephalic, atraumatic. EYES: Extraocular muscles are intact. Conjunctivae clear. NECK: No JVD. No bruits. CARDIOVASCULAR: Regular rate and rhythm. LUNGS: Clear to auscultation bilaterally. No wheezing or rales. ABDOMEN: Soft, nontender, and nondistended. EXTREMITIES: No clubbing, cyanosis, or edema. VASCULAR: 2+ pulses. SKIN: Warm, dry, and intact. NEUROLOGIC: No focal deficits noted. Cranial nerves are grossly intact. PSYCHIATRIC: Normal mood and affect. LABORATORY DATA: Reviewed, shows a troponin of 1.5, CK-MB is 15.3. Creatinine is 0.6. Chest x-ray shows no acute cardiopulmonary abnormality. Echocardiogram is pending. A 12-lead electrocardiogram showed normal sinus rhythm with nonspecific ST-T wave abnormalities. IMPRESSION: 1. Wsz-LR-tbkerhvsp myocardial infarction. 2. Status post bioprosthetic aortic valve replacement. 3. Chest pain. 4. Hyperlipidemia. 5. Hypertension. 6. Heparin-induced thrombocytopenia. RECOMMENDATIONS: Start bivalirudin for anticoagulation. Continue aspirin and Plavix. Recommend coronary angiography with possible percutaneous coronary intervention. Obtain a 2D echocardiogram. DO HALLE De La Cruz/CHARAN /[id number]
[2019-08-24] VITALS (13 sets, daily range): BP systolic 102–152; BP diastolic 58–87
[2019-08-24] MEDS: ONDANSETRON HCL INJ 2MG/ML 2ML 2 MG/ML VIAL IV PRN ×2 (00:48→11:34)
[2019-08-24] MEDS: LEVOTHYROXINE SODIUM 75 MCG TAB PO SCH (05:24)
[2019-08-24 05:36] LABS: BASOPHILS % 0.6 % (0.0-1.0); EOSINOPHILS # (AUTO) 0.1 (0.0-0.4); EOSINOPHILS % 1.4 % (0.0-6.0); HEMATOCRIT 37.8 % (34.2-44.1); HEMOGLOBIN 12.4 g/dL (12.0-16.0); LYMPHOCYTES # (AUTO) 1.6 (1.0-3.2); MEAN CORPUSCULAR HEMOGLOBIN 27.8 pg (28-32); MEAN CORPUSCULAR HGB CONC 32.8 g/dL (31-35); MEAN CORPUSCULAR VOLUME 84.8 fL (81-99); MONOCYTES # (AUTO) 0.8 (0.2-0.8); MONOCYTES % 10.8 % (4.4-11.3); NEUTROPHILS # (AUTO) 4.6 (2.1-6.9); NEUTROPHILS % 64.6 % (38.7-80.0); PLATELET COUNT 250 x10e3/uL (140-360); RED BLOOD COUNT 4.46 x10e6/uL (3.6-5.1); RED CELL DISTRIBUTION WIDTH 14.2 % (11.7-14.4)
[2019-08-24 05:54] LABS: ANION GAP 16.6 mmol/L (8-16); BLOOD UREA NITROGEN 17 mg/dL (7-26); BUN/CREATININE RATIO 21 (6-25); CALCIUM 10.2 mg/dL (8.4-10.2); CARBON DIOXIDE 28 mmol/L (22-29); CHLORIDE 97 mmol/L (98-107); CHOL/HDL RATIO 4.7 (3.0-3.6); CHOLESTEROL 132 MD/DL (0-199); EST GLOMERULAR FILTRATION RATE > 60 ML/MIN (60-); GLUCOSE 92 mg/dL (74-118); HDL CHOLESTEROL 28 MG/DL (40-60); LDL CHOLESTEROL 63 MG/DL (60-130); POTASSIUM 4.6 mmol/L (3.5-5.1); SODIUM 137 mmol/L (136-145); TRIGLYCERIDES 203 MG/DL (0-149)
[2019-08-24 06:18] LABS: THYROID STIMULATING HORMONE 4.094 uIU/mL (0.350-4.940)
[2019-08-24] MEDS ORDERED: LIDOCAINE HCL 2% LOCAL 20 ML VIAL ONE (07:07)
[2019-08-24] MEDS ORDERED: HEPARIN SOD/SOD CHLORIDE 0 ML ONE (07:07)
[2019-08-24] MEDS ORDERED: IOPAMIDOL 370 MG/ML 200 ML INFUS..BTL INJ ONE ×2 (07:07→08:00)
[2019-08-24] MEDS ORDERED: SODIUM CHLORIDE 0.9% 1000ML 2,000 ML ONE (07:26)
[2019-08-24] MEDS: INSULIN REGULAR, HUMAN 100 UNIT/1 ML 3ML VIAL SQ SCH ×2 (07:30→10:52)
--- NOTE | 2019-08-24 07:50 | NUR ---
PT LEAVING FOR PROCEDURE. STABLE
[2019-08-24] MEDS ORDERED: FENTANYL CITRATE/PF 100MCG/2 ML INJ ONE (07:59)
[2019-08-24] MEDS ORDERED: MIDAZOLAM HCL 2 MG/2 ML VIAL ONE ×2 (07:59→08:34)
[2019-08-24] MEDS ORDERED: VERAPAMIL HCL 2.5 MG/ML 2 ML VIAL ONE (07:59)
[2019-08-24] MEDS ORDERED: NITROGLYCERIN/D5W 200 MCG/ML 250 ML ONE (08:00)
[2019-08-24] MEDS ORDERED: SODIUM CHLORIDE 0.9% 50ML 0 ML ONE (08:34)
[2019-08-24] MEDS ORDERED: BIVALRIUDIN 250 MG/VIAL VIAL IV ONE (08:34)
[2019-08-24] MEDS: SODIUM CHLORIDE 0.9% 1000ML 1,000 ML IV SCH (08:49)
--- NOTE | 2019-08-24 08:50 | NUR ---
0850AM bedside report received from Johny CASTRO. Alert oriented and appropriate, PERRLA, respirations even and unlabored to room air. Pulses x4 extremities equal and strong. Pedal pulses PT/DP X4 Cap fill brisk < 3 sec. TR band air release at 1000am No gross issues pain pallor pressure or dysrhythmia Skin warm and dry integrity appears D/I. IV 20g to rt forearm at 100cchr till 1liter in, presents healthy w/o s/s of infiltration or complaint. Abdomen soft and supple. pt offered toileting, denies need to urinate or defecate. No personal affects with patient. Family sister in law Delaney . Pt and family verbalizes understanding of POC.dc plans for micro lab analyst done and papers and copies with pt.DR Quintero spoke with pt. Currently w/o complaint of pain or need. deborah/yanet
[2019-08-24] MEDS: FENOFIBRATE 145 MG TAB PO SCH (09:00)
[2019-08-24] MEDS ORDERED: PANTOPRAZOLE SOD 40 MG TABEC PO SCH (09:00)
[2019-08-24] MEDS ORDERED: LEVOTHYROXINE SODIUM 75 MCG TAB PO SCH (09:00)
[2019-08-24] MEDS: LOSARTAN POTASSIUM 100 MG TAB PO SCH (09:00)
[2019-08-24] MEDS ORDERED: CLOPIDOGREL BISULFATE 75 MG TAB PO SCH (09:00)
[2019-08-24] MEDS: CLOPIDOGREL BISULFATE 75 MG TAB PO SCH (09:00)
[2019-08-24] MEDS: HYDROCHLOROTHIAZIDE 25 MG TAB PO SCH (09:00)
[2019-08-24] MEDS: PANTOPRAZOLE SOD 40 MG TABEC PO SCH (09:00)
[2019-08-24] MEDS ORDERED: ATORVASTATIN 20 MG TAB PO SCH (09:00)
[2019-08-24] MEDS: LORATADINE 10 MG TAB PO SCH (09:00)
[2019-08-24] MEDS ORDERED: LOSARTAN POTASSIUM 25 MG TAB PO SCH (09:00)
--- NOTE | 2019-08-24 10:00 | NUR ---
1000 RADIAL Compression removal: Initial Cuff volume 11 cc 10ama -3cc Removed No hematoma/bleeding noted with normal neurovascular function. 1015a -4cc Removed No hematoma/ bleeding noted with normal neurovascular function. 1030a -4cc Removed No hematoma/bleeding noted with normal neurovascular function. Air removal completed. Stasis achieved sterile 2x2,Tegaderm, Coban dressing No hematoma, bleeding noted with normal neurovascular function. Wrist splint in place. Pt instructed on POC. Ds/Rn
--- NOTE | 2019-08-24 10:27 | NUR ---
1075o Transfer to floor care per stretcher and Zollalit handoff completed at bedside. No gross issues pallor of vs or dysrhythmia. Does have continued c/o back pain 02/08 No related to Chest pain or SOB voiced I reported to floor staff who will f/o with management. Rt TR band teaching done and aware to remove with am shower. Has copies of diagram ,teaching tool and f/o 2wks at Md OFF. Dr Quintero spoke with pt and Delaney sister in law aware My followup with home visitor services coordinator. Left pt in room Staff assisting pt to bathroom call light at bedside and bed in low position.ds/rn
[2019-08-24] MEDS: HYDROMORPHONE 1MG/1ML INJ IV PRN (11:34)
[2019-08-24] MEDS: [UNRECOGNIZED DRUG - OTHER] IV SCH (12:00)
[2019-08-24] MEDS: SODIUM CHLORIDE 0.9% IV SCH (12:00)
--- NOTE | 2019-08-24 15:53 | Progress Note ---
DATE: Cardiology Progress Note SUBJECTIVE: The patient feeling better. Denies any chest pain. OBJECTIVE: VITAL SIGNS: Temperature is 96.7, heart rate is 61, respirations are 11, blood pressure is 112/58, and ox saturation 100% on room air. GENERAL: Well appearing, no apparent distress. CARDIOVASCULAR: Regular rate and rhythm. LUNGS: Clear to auscultation. ABDOMEN: Soft, nontender, nondistended. EXTREMITIES: No clubbing, cyanosis, or edema. CARDIOVASCULAR MEDICATIONS: Reviewed. LABORATORY DATA: Reviewed. IMAGING: Coronary angiography showed atgr-bo-bjuegxof nonobstructive coronary artery disease. IMPRESSION: 1. Xqk-RY-ervzketrb myocardial infarction. 2. Nonobstructive coronary artery disease. 3. Bioprosthetic aortic valve. 4. Chest pain. 5. Hyperlipidemia. 6. Hypertension. 7. History of heparin-induced thrombocytopenia. RECOMMENDATIONS: Continue current cardiovascular medications. She is on dual antiplatelet therapy. No intervention was needed for her myocardial infarction. The patient reports a followup with her regular robotic machine tender production in 2 weeks. Rafael Quintero DO BM/MODL /[id number]
--- NOTE | 2019-08-25 11:52 | Discharge Summary ---
FINAL DISCHARGE DIAGNOSES: 1. Chest pain, ruled out status post left heart catheterization with no percutaneous coronary intervention needed, recommends medical management. 2. Chronic smoker. 3. Hyperlipidemia. 4. Hypothyroidism. 5. Hypertension. 6. Type 2 diabetes. CONSULTANTS: Cardiology. PHYSICAL EXAMINATION: VITAL SIGNS: Temperature is 96.8, pulse 61, respiratory rate is 13, blood pressure is 112/58, pulse ox is 99% on room air. LABORATORY FINDINGS: Show white count 7, hemoglobin 12.4, hematocrit of 37, platelets of 250. Coagulation PT 13, INR 1, PTT 32. Chemistry; sodium 137, potassium 4.6, chloride 97, bicarbonate 28, BUN 17, creatinine is 0.8, glucose is 92, calcium 10.2, troponin downtrend is 0.754. LDL was 63. TSH was 4. Urinalysis was negative. MICROBIOLOGY: None. IMAGING STUDIES: Chest x-ray on 08/20/2019, showed no acute cardiopulmonary abnormalities. Total bilirubin is 0.5, AST is 23, ALT is 21, alkaline phosphatase 76. CK is 99. BNP is 204. Albumin was 4. HOSPITAL COURSE: A 63-year-old female, who came into the emergency room with complaints of underlying chest pain. The patient was admitted under observation and Cardiology was consulted. The patient was found to have mild elevation in troponin. The patient was allergic to heparin and Lovenox instead was started on bivalirudin drip per Cardiology. She was on Plavix as well. On 08/24/2019, the patient underwent left heart catheterization, found to have very minimal disease and does not need any PCI. No PCI needed per cardiology's note and discussing this with Cardiology, the patient just needs medical management. She will continue with her cardioprotective medications, but she is allergic to aspirin. We will continue with Plavix at home. She will follow up with Cardiology in about 2 weeks' time. On discharge, the patient was doing well, had no complaints of chest pain. She was cleared for discharge by Cardiology. No further workup needed. The patient was doing well back to normal baseline with no other issues. On the day of discharge, vital signs were stable, labs reviewed and stable. The patient is seen and evaluated, examined thoroughly on the day of discharge. No other complaints. The patient verbalized understanding and agrees to plan of care to follow up as an outpatient with her PCP in 1 week and the public area supervisor in 2 weeks' time. MEDICATIONS: See med reconciliation form. DISPOSITION: To home. CONDITION: Stable. DIET: Heart healthy. In the event of any worsening symptoms, the patient was advised to come back to the ED for further evaluation. Discharge summary took greater than 35 minutes. Once again, none of her medications were changed. She will continue with same home medications with no changes. MD MADHURI Davis/CHARAN /[id number]
== END 2019-08-24 17:15 | disposition home or self-care (01) | DRG 282 ==
LOC: ER 13:28 → ERHOLD 15:31 → UNDOADMOB 15:31 → IMCU 18:03 → OBSVTOIN 08-24 10:26
PROVIDERS: ADMIT Internal Medicine; ATTEND Internal Medicine
PROC: B2111ZZ Fluoroscopy of Multiple Coronary Arteries using Low Osmolar Contrast (ICD-10-PCS; principal; 2019-08-24)
PROC: 4A023N7 Measurement of Cardiac Sampling and Pressure, Left Heart, Percutaneous Approach (ICD-10-PCS; 2019-08-24)
DX: I21.4 Non-ST elevation (NSTEMI) myocardial infarction (principal); I25.10 Atherosclerotic heart disease of native coronary artery without angina pectoris; I10 Essential (primary) hypertension; E11.9 Type 2 diabetes mellitus without complications; Z88.6 Allergy status to analgesic agent; Z88.5 Allergy status to narcotic agent; Z88.0 Allergy status to penicillin; Z88.8 Allergy status to other drugs, medicaments and biological substances; Z83.3 Family history of diabetes mellitus; Z82.49 Family history of ischemic heart disease and other diseases of the circulatory system; Z87.891 Personal history of nicotine dependence; E78.5 Hyperlipidemia, unspecified; E03.9 Hypothyroidism, unspecified; Z91.19 Patient's noncompliance with other medical treatment and regimen; Z95.2 Presence of prosthetic heart valve; D75.82 Heparin induced thrombocytopenia (HIT); Z79.84 Long term (current) use of oral hypoglycemic drugs
CPT/HCPCS: 36415; 71045; 80048; 80053; 80061; 81001; 82550; 82553; 82948; 83036; 83880; 84443; 84484; 85025; 85610; 85730; 93005; 93454; 99152; 99284; C1769; C1887; G0378; J0583; J1170; J1817; J2001; J2250; J2405; J3010; J7030; Q9967

== ENCOUNTER → 2020-04-18 | Outpatient (CLI) | payer MEDICARE ==
[~2020-04-18] MED LIST: ATORVASTATIN CA20 MG PO; CLOPIDOGREL75 MG PO; FENOFIBRATE145 MG PO; HYDROCHLOROTHIA25 MG; IOPAMIDOL 370 MG/ML 200 ML INFUS..BTL INJ ONE; LEVOCETIRIZINE D5 MG PO; LEVOTHYROXINE75 MCG PO; LOSARTAN POTASS25 MG PO; METFORMIN HCL500 MG PO; PANTOPRAZOLE SO40 MG PO; SODIUM CHLORIDE 0.9% 50ML 50 ML ONE
[2020-04-18 09:40] LABS: BLOOD UREA NITROGEN 13 mg/dL (7-26); BUN/CREATININE RATIO 14 (6-25); CREATININE, SERUM 0.92 mg/dL (0.57-1.11); EST GLOMERULAR FILTRATION RATE > 60 ML/MIN (60-)
--- NOTE | 2020-04-18 11:19 | Diagnostic Imaging Report ---
EXAM: CT Abdomen and Pelvis WITH intravenous contrast INDICATION: Left lower quadrant abdominal pain COMPARISON: None. TECHNIQUE: Abdomen and pelvis were scanned utilizing a multidetector helical scanner from the lung base to the pubic symphysis after administration of IV contrast. Coronal and sagittal reformations were obtained. Routine protocol was performed. Scan was performed during portal venous phase. IV CONTRAST: 100mL of Isovue 370 ORAL CONTRAST: Gastrografin RADIATION DOSE: Total DLP: 387 mGy*cm Dose modulation, iterative reconstruction, and/or weight based adjustment of the mA/kV was utilized to reduce the radiation dose to as low as reasonably achievable. FINDINGS: LOWER THORAX: Normal. HEPATOBILIARY: Diffuse hepatic steatosis. No focal liver lesion. No biliary ductal dilation. Status post cholecystectomy. SPLEEN: No splenomegaly. PANCREAS: No focal masses or ductal dilatation. ADRENALS: No adrenal nodules. KIDNEYS/URETERS: No hydronephrosis, stones, or solid mass lesions. PELVIC ORGANS/BLADDER: Status post hysterectomy. PERITONEUM / RETROPERITONEUM: No free air or fluid. LYMPH NODES: No lymphadenopathy. VESSELS: Moderate atherosclerotic calcifications of the nonaneurysmal abdominal aorta and major branches. Status post stenting of the proximal left common iliac artery. GI TRACT: No abnormal bowel thickening. No bowel obstruction. Status post appendectomy. BONES AND SOFT TISSUES: No acute osseous injury. No suspicious lytic or blastic lesions. IMPRESSION: No acute findings in the abdomen or pelvis. Diffuse hepatic steatosis. Signed by: Elliot Ayala MD on 04/18/2020 11:15 AM
== END ==
LOC: CT 08:52
PROVIDERS: ATTEND Internal Medicine Gastroenterology
DX: R10.30 Lower abdominal pain, unspecified (principal); A04.72 Enterocolitis due to Clostridium difficile, not specified as recurrent
CPT/HCPCS: 36415; 74177; 82565; 84520; Q9967

== ENCOUNTER → 2020-04-25 | Day surgery (SDC) | payer MEDICARE, OTHER ==
[2020-04-22 10:30] LABS: BASOPHILS # (AUTO) 0.1 (0.0-0.1); BASOPHILS % 1.2 % (0.0-1.0); EOSINOPHILS # (AUTO) 0.1 (0.0-0.4); EOSINOPHILS % 2.2 % (0.0-6.0); HEMATOCRIT 38.9 % (34.2-44.1); LYMPHOCYTES # (AUTO) 1.3 (1.0-3.2); LYMPHOCYTES % 26.7 % (18.0-39.1); MEAN CORPUSCULAR HEMOGLOBIN 28.8 pg (28-32); MEAN CORPUSCULAR HGB CONC 33.4 g/dL (31-35); MEAN CORPUSCULAR VOLUME 86.1 fL (81-99); MONOCYTES # (AUTO) 0.5 (0.2-0.8); MONOCYTES % 9.9 % (4.4-11.3); NEUTROPHILS # (AUTO) 2.9 (2.1-6.9); NEUTROPHILS % 59.4 % (38.7-80.0); PLATELET COUNT 215 x10e3/uL (140-360); RED BLOOD COUNT 4.52 x10e6/uL (3.6-5.1); RED CELL DISTRIBUTION WIDTH 13.9 % (11.7-14.4)
[~2020-04-25] MED LIST changes: +EPHEDRINE SULFATE INJ 50 MG/ML VIAL ONE; +FENTANYL CITRATE/PF 100MCG/2 ML INJ ONE; +GLUCAGON FOR INJ 1 MG VIAL ONE; +HYOSCYAMINE 0.125 MG TAB ONE; +HYOSCYAMINE 0.125 MG TAB PO ONE; -IOPAMIDOL 370 MG/ML 200 ML INFUS..BTL INJ ONE; +LIDOCAINE HCL 2% LOCAL INJ 5 ML SDV VIAL INJ ONE; +MIDAZOLAM HCL 2 MG/2 ML VIAL ONE; +PHENERGAN PO; +PROPOFOL IV EMULSION 10 MG/ML 20 ML VIAL ONE; +SEROQUEL50 MG PO; -SODIUM CHLORIDE 0.9% 50ML 50 ML ONE
[2020-04-25 10:45] VITALS: BP 130/79
--- NOTE | 2020-04-25 11:15 | Operative Report ---
DATE OF PROCEDURE: 04/25/2020 SURGEON: Erick Mullins MD PROCEDURE: An EGD with biopsies and colonoscopy with polypectomy and biopsies. INDICATIONS FOR EGD: Dyspepsia. INDICATIONS FOR COLONOSCOPY: Lower abdominal pain, chronic diarrhea, personal history of colon polyps. MEDICATIONS: The patient was done under MAC. Please see anesthesiologist's note. DESCRIPTION OF PROCEDURE: With the patient in left lateral decubitus position, a flexible fiberoptic Olympus gastroscope was introduced into the esophagus under direct visualization without any difficulty. On the way, an approximately 1 cm nodule was noted at the base of the tongue. Mucosa overlying the distal esophagus revealed some patchy areas of erythema. The scope was then advanced with ease into the stomach traversing a small sliding hiatal hernia. Mucosa overlying the antrum and the body revealed patchy erythema and low-grade edema and biopsies were obtained and sent to stain for H. pylori. Pylorus was of normal contour and shape, was intubated with ease and the scope was advanced all the way to the second portion of the duodenum. Biopsies were obtained from the proximal second portion and duodenal bulb to rule out sprue. The scope was then withdrawn back into the stomach and retroflexed mucosa overlying the fundus and the cardia appeared to be within normal limits. The scope was then straightened out. It was subsequently withdrawn. The patient tolerated the procedure well. IMPRESSION: 1. Approximately 1 cm nodule, hhod-jt-jljcyg. 2. Distal esophagitis, mild. 3. Small sliding hiatal hernia. 4. Gastritis, biopsied. Biopsies sent to stain for Helicobacter pylori. 5. Rule out sprue. PLAN: Follow up histology. Increase Protonix to 40 mg one p.o. a.c. b.i.d. The patient was then turned around. After adequate lubrication of the anal canal, a flexible fiberoptic Olympus colonoscope was inserted into the rectum with ease and advanced all the way to the cecum. Mucosa overlying the cecum appeared to be within normal limits. The ileocecal valve was intubated and the scope was advanced into the terminal ileum. Biopsies were obtained. The scope was then withdrawn back into the colon. The ileocecal valve appeared lobular and that was biopsied. The scope was then withdrawn slowly. Of note, the diverticular disease was noted to be scattered pretty much throughout the colon. Random biopsies were obtained from the colon to rule out microscopic colitis as the mucosa overall was grossly unremarkable other than for some mild inflammatory changes in the left colon. A minute polyp was removed per cold biopsy forceps from the transverse colon. Similar mild inflammatory changes were noted in the rectum and biopsies were obtained. The scope was then retroflexed into the distal rectum and the area around the dentate line appeared to be within normal limits. The scope was then straightened out. It was subsequently withdrawn. The patient tolerated procedure well. IMPRESSION: 1. Diverticulosis. 2. Rule out microscopic colitis. 3. Lobular ileocecal valve, biopsied. 4. Transverse colon polyp, removed per cold biopsy forceps. 5. Proctitis, mild. PLAN: Follow up histology. Follow up stool studies. Initiate Bentyl 20 mg one p.o. t.i.d. VSL #3 one p.o. b.i.d. The patient might benefit from a followup colonoscopy in 3 to 5 years. Erick Mullins MD [facility] [place] [place] /[id number] cc: Alie Grimes MD
[2020-04-25 12:29] LABS: WBC,FECAL (FECAL LACTOFERRIN) NEGATIVE (NEGATIVE)
[2020-04-25 13:55] LABS: C DIFFICILE TOXIN A&B AMP PROB NEGATIVE (NEGATIVE)
== END | disposition home or self-care (01) ==
LOC: OR 06:15
PROVIDERS: ATTEND Internal Medicine Gastroenterology
DX: K52.9 Noninfective gastroenteritis and colitis, unspecified (principal); D12.3 Benign neoplasm of transverse colon; K31.7 Polyp of stomach and duodenum; K29.70 Gastritis, unspecified, without bleeding; K20.9 Esophagitis, unspecified; K56.7 Ileus, unspecified; K21.9 Gastro-esophageal reflux disease without esophagitis; K44.9 Diaphragmatic hernia without obstruction or gangrene; K57.30 Diverticulosis of large intestine without perforation or abscess without bleeding; K62.89 Other specified diseases of anus and rectum; A04.72 Enterocolitis due to Clostridium difficile, not specified as recurrent; K14.8 Other diseases of tongue; I10 Essential (primary) hypertension; I44.7 Left bundle-branch block, unspecified; I25.2 Old myocardial infarction; E03.9 Hypothyroidism, unspecified; F41.9 Anxiety disorder, unspecified; F17.210 Nicotine dependence, cigarettes, uncomplicated; Z88.6 Allergy status to analgesic agent; Z88.1 Allergy status to other antibiotic agents; Z88.7 Allergy status to serum and vaccine; Z88.8 Allergy status to other drugs, medicaments and biological substances; Z01.812 Encounter for preprocedural laboratory examination; Z11.59 Encounter for screening for other viral diseases; Z79.02 Long term (current) use of antithrombotics/antiplatelets; Z80.0 Family history of malignant neoplasm of digestive organs
CPT/HCPCS: 36415; 43239; 45380; 83630; 83993; 85025; 87045; 87177; 87328; 87493; 87635; J1610; J2001; J2250; J2704; J3010; 45378